=== PATIENT | female | born 1960 | race Caucasian/White ===

== ENCOUNTER → 2016-03-20 | Outpatient (CLI) | payer BC, OTHER ==
[2016-03-20 12:37] LABS: BASOPHILS # (AUTO) 0.05 10*3/UL; BASOPHILS % (AUTO) 0.7 % (0-1); EOSINOPHILS % (AUTO) 0.9 % (0-8); HEMATOCRIT 42.1 % (37.0-47.0); HEMOGLOBIN 14.1 g/dL (12.0-16.0); IMM GRAN % (AUTO) 0.1 % (0-5); IMM GRAN# (AUTO) 0.01 10*3/UL; LYMPHOCYTES % (AUTO) 20.7 % (10-50); MEAN CORPUSCULAR HEMOGLOBIN 31.3 PG (27-31); MEAN CORPUSCULAR HGB CONC 33.5 g/dL (33-37); MEAN PLATELET VOLUME 8.7 FL (7.4-12.2); MONOCYTES % (AUTO) 7.4 % (5-15); NEUTROPHILS # (AUTO) 4.73 10*3/UL; NEUTROPHILS % (AUTO) 70.2 % (50-80); RDW COEFFICIENT OF VARIATION 13.3 % (11.5-14.5); WHITE BLOOD COUNT 6.75 10^3/uL (4.8-10.8)
[2016-03-20 12:40] LABS: PLATELET MORPHOLOGY COMMENT NORMAL MORPHOLOGY (NORM)
[2016-03-20 12:49] LABS: PROTHROMBIN TIME 10.3 secs (9.7-11.4)
[2016-03-20 13:06] LABS: ASPARTATE AMINO TRANSFERASE 29 IU/L (8-39); BILIRUBIN,TOTAL 0.6 mg/dL (0.3-1.2); BLOOD UREA NITROGEN 11 mg/dL (7-22); BUN/CREATININE RATIO 15.71 (6-20); CALCIUM 9.2 mg/dL (8.7-10.7); CHLORIDE 105 meq/L (98-112); CREATININE 0.7 mg/dL (0.50-1.20); EST GLOMERULAR FILTRATION > 60 (>60 ml/min/1.73m(2)); GLUCOSE 86 mg/dL (78-110); POTASSIUM 4.2 meq/L (3.8-5.2); SODIUM 140 meq/L (135-145); TOTAL PROTEIN 7.3 g/dL (6.1-8.0)
== END ==
LOC: LAB 12:18
PROVIDERS: ATTEND Radiology Diagnostic Radiology
DX: R91.1 Solitary pulmonary nodule (principal)
CPT/HCPCS: 36415; 80053; 85025; 85610; 85730